=== PATIENT | male | born 1960 | race African-American/Black ===

== ENCOUNTER 2021-11-17 15:00 | Inpatient (IN) | payer OTHER ==
[2021-11-17] MEDS ORDERED: SODIUM CHLORIDE 0.9% 500 ML INFUS.BAG IV ONE ×2 (15:56→17:53)
[2021-11-17 16:37] LABS: BASO % 0.4 % (0-2.0); HEMATOCRIT 32.5 % (35.4-49); HEMOGLOBIN 10.9 GM/dL (11.7-16.9); LYMPH % 10.5 % (8-40); MCH 25.9 pg (25.7-33.7); MCHC 33.4 g/dl (32.0-35.9); MEAN CELL VOLUME 77.5 fl (80-96); MEAN PLT VOLUME 8.1 fl (7.5-11.1); MONO % 8.3 % (3.8-10.2); NEUT % 79.8 % (42.8-82.8); PLATELET COUNT 245 10^3/uL (134-434); RBC 4.19 M/mm3 (4.00-5.60); RDW 18.2 % (11.9-15.9); WHITE BLOOD COUNT 5.4 K/mm3 (4.0-10.0)
[2021-11-17 16:45] LABS: VENOUS BASE EXCESS -0.7 mmol/L (-2-2); VENOUS O2 SATURATION 72.2 % (70-80); VENOUS PCO2 44.2 mmHg (38-52); VENOUS PH 7.366 (7.310-7.410)
[2021-11-17 16:46] LABS: INR 0.97 (0.83-1.09); PROTHROMBIN TIME (PATIENT) 11.2 SEC (9.7-13.0)
[2021-11-17 17:01] LABS: CALCIUM 8.7 mg/dL (8.5-10.1)
[2021-11-17 17:02] LABS: BLOOD UREA NITROGEN 38.5 mg/dL (7-18)
[2021-11-17 17:05] LABS: CREATININE 1.8 mg/dL (0.55-1.3)
[2021-11-17 17:07] LABS: BILIRUBIN,TOTAL 0.3 mg/dL (0.2-1); TOT PROT 6.2 g/dl (6.4-8.2)
[2021-11-17] MEDS ORDERED: LACTATED RINGERS SOLUTION 1,000 ML/1,000 ML INFUS.BAG IV SCH ×2 (20:45→20:46)
[2021-11-17 21:53] LABS: PH,URINE 5.5 (5.0-8.0); URINE APPEARANCE CLEAR; URINE BILIRUBIN NEGATIVE (NEGATIVE); URINE COLOR YELLOW; URINE GLUCOSE (UA) 3+ (NEGATIVE); URINE KETONE NEGATIVE (NEGATIVE); URINE LEUK ESTERASE NEGATIVE (NEGATIVE); URINE NITRITE NEGATIVE (NEGATIVE); URINE PROTEIN NEGATIVE (NEGATIVE); URINE UROBILINOGEN 0.2 mg/dL (0.2-1.0)
[2021-11-17] MEDS: INSULIN SLIDING SCALE (NOVOLOG) 1 VIAL SQ SCH (23:25)
[2021-11-17] MEDS: LACTATED RINGERS SOLUTION 1,000 ML/1,000 ML INFUS.BAG IV SCH (23:25)
[2021-11-17] MEDS: MEMANTINE HCL 10 MG TABLET (FP) PO SCH (23:47)
[2021-11-18] MEDS: INSULIN SLIDING SCALE (NOVOLOG) 1 VIAL SQ SCH ×4 (06:32→21:02)
[2021-11-18 07:50] LABS: ALBUMIN 3.1 g/dl (3.4-5.0); BLOOD UREA NITROGEN 34.9 mg/dL (7-18); CALCIUM 8.5 mg/dL (8.5-10.1); MAGNESIUM 1.9 mg/dL (1.8-2.4)
[2021-11-18 07:53] LABS: CREATININE 1.5 mg/dL (0.55-1.3); PHOSPHOROUS 3.6 mg/dL (2.5-4.9)
[2021-11-18 07:54] LABS: TOT PROT 5.9 g/dl (6.4-8.2)
[2021-11-18] MEDS: MEMANTINE HCL 10 MG TABLET (FP) PO SCH ×2 (09:23→21:02)
[2021-11-18] MEDS: LACTATED RINGERS SOLUTION 1,000 ML/1,000 ML INFUS.BAG IV SCH (21:01)
[2021-11-19] MEDS: INSULIN SLIDING SCALE (NOVOLOG) 1 VIAL SQ SCH ×4 (06:14→21:57)
[2021-11-19 07:35] LABS: HEMATOCRIT 31.9 % (35.4-49); HEMOGLOBIN 10.5 GM/dL (11.7-16.9); MCH 25.7 pg (25.7-33.7); MEAN PLT VOLUME 7.9 fl (7.5-11.1); PLATELET COUNT 254 10^3/uL (134-434); RBC 4.09 M/mm3 (4.00-5.60); RDW 17.9 % (11.9-15.9); WHITE BLOOD COUNT 5.3 K/mm3 (4.0-10.0)
[2021-11-19 07:37] LABS: CALCIUM 8.4 mg/dL (8.5-10.1)
[2021-11-19 07:38] LABS: ALBUMIN 2.8 g/dl (3.4-5.0); BLOOD UREA NITROGEN 26.4 mg/dL (7-18)
[2021-11-19 07:40] LABS: CREATININE 1.4 mg/dL (0.55-1.3)
[2021-11-19 07:42] LABS: BILIRUBIN,TOTAL 0.6 mg/dL (0.2-1); TOT PROT 5.7 g/dl (6.4-8.2)
[2021-11-19] MEDS: MEMANTINE HCL 10 MG TABLET (FP) PO SCH ×2 (11:07→22:00)
[2021-11-19] MEDS: LACTATED RINGERS SOLUTION 1,000 ML/1,000 ML INFUS.BAG IV SCH ×2 (11:08→16:30)
[2021-11-20] MEDS: LACTATED RINGERS SOLUTION 1,000 ML/1,000 ML INFUS.BAG IV SCH ×3 (02:38→12:19)
[2021-11-20] MEDS: INSULIN SLIDING SCALE (NOVOLOG) 1 VIAL SQ SCH ×4 (06:38→21:05)
[2021-11-20 07:52] LABS: HEMATOCRIT 32.8 % (35.4-49); HEMOGLOBIN 10.9 GM/dL (11.7-16.9); MCH 25.7 pg (25.7-33.7); MCHC 33.2 g/dl (32.0-35.9); MEAN CELL VOLUME 77.4 fl (80-96); MEAN PLT VOLUME 7.6 fl (7.5-11.1); PLATELET COUNT 254 10^3/uL (134-434); RBC 4.23 M/mm3 (4.00-5.60); RDW 18.4 % (11.9-15.9); WHITE BLOOD COUNT 5.4 K/mm3 (4.0-10.0)
[2021-11-20 08:47] LABS: ALBUMIN 3.1 g/dl (3.4-5.0)
[2021-11-20 08:49] LABS: CREATININE 1.5 mg/dL (0.55-1.3)
[2021-11-20 08:51] LABS: BILIRUBIN,TOTAL 0.6 mg/dL (0.2-1)
[2021-11-20 08:52] LABS: TOT PROT 5.9 g/dl (6.4-8.2)
[2021-11-20] MEDS: MEMANTINE HCL 10 MG TABLET (FP) PO SCH ×2 (10:19→21:06)
[2021-11-20 14:43] VITALS: BMI 23.7
[2021-11-21] MEDS: MEMANTINE HCL 10 MG TABLET (FP) PO SCH ×2 (09:33→21:17)
[2021-11-21] MEDS: LACTATED RINGERS SOLUTION 1,000 ML/1,000 ML INFUS.BAG IV SCH ×2 (09:55→18:02)
[2021-11-21] MEDS: INSULIN SLIDING SCALE (NOVOLOG) 1 VIAL SQ SCH ×4 (09:55→21:23)
[2021-11-21] MEDS ORDERED: LIDOCAINE 5% TOPICAL PATCH TP PRN (09:56)
[2021-11-21 10:36] LABS: BASO % 0.8 % (0-2.0); EOS % 1.9 % (0-4.5); HEMATOCRIT 31.5 % (35.4-49); HEMOGLOBIN 10.5 GM/dL (11.7-16.9); LYMPH % 11.8 % (8-40); MCH 25.8 pg (25.7-33.7); MCHC 33.3 g/dl (32.0-35.9); MEAN CELL VOLUME 77.5 fl (80-96); MEAN PLT VOLUME 7.8 fl (7.5-11.1); MONO % 7.6 % (3.8-10.2); NEUT % 77.9 % (42.8-82.8); PLATELET COUNT 278 10^3/uL (134-434); RBC 4.06 M/mm3 (4.00-5.60)
[2021-11-21 11:00] LABS: CALCIUM 8.4 mg/dL (8.5-10.1)
[2021-11-21 11:04] LABS: CREATININE 1.5 mg/dL (0.55-1.3)
[2021-11-21] MEDS: ACETAMINOPHEN 325 MG TABLET (FP) PO PRN ×2 (11:13→18:14)
[2021-11-21] MEDS: oxyCODONE HCL 5 MG TABLET PO PRN (21:18)
[2021-11-21] MEDS: LIDOCAINE PATCH REMOVAL MC SCH (21:20)
[2021-11-22] MEDS: INSULIN SLIDING SCALE (NOVOLOG) 1 VIAL SQ SCH ×4 (06:00→21:26)
[2021-11-22 07:45] LABS: BASO % 0.7 % (0-2.0); EOS % 2.9 % (0-4.5); HEMATOCRIT 33.2 % (35.4-49); HEMOGLOBIN 10.9 GM/dL (11.7-16.9); LYMPH % 14.6 % (8-40); MCH 25.7 pg (25.7-33.7); MCHC 32.7 g/dl (32.0-35.9); MEAN CELL VOLUME 78.4 fl (80-96); MEAN PLT VOLUME 8.2 fl (7.5-11.1); MONO % 9.5 % (3.8-10.2); NEUT % 72.3 % (42.8-82.8); PLATELET COUNT 265 10^3/uL (134-434); RBC 4.23 M/mm3 (4.00-5.60); RDW 18.8 % (11.9-15.9); WHITE BLOOD COUNT 5.5 K/mm3 (4.0-10.0)
[2021-11-22 07:51] LABS: BLOOD UREA NITROGEN 18.3 mg/dL (7-18); CALCIUM 8.6 mg/dL (8.5-10.1)
[2021-11-22 07:55] LABS: CREATININE 1.4 mg/dL (0.55-1.3)
[2021-11-22] MEDS: MEMANTINE HCL 10 MG TABLET (FP) PO SCH ×2 (09:11→21:23)
[2021-11-22] MEDS: LACTATED RINGERS SOLUTION 1,000 ML/1,000 ML INFUS.BAG IV SCH (17:36)
[2021-11-22] MEDS: LIDOCAINE PATCH REMOVAL MC SCH (21:26)
[2021-11-23] MEDS: INSULIN SLIDING SCALE (NOVOLOG) 1 VIAL SQ SCH ×3 (06:15→17:00)
[2021-11-23] MEDS: MEMANTINE HCL 10 MG TABLET (FP) PO SCH (09:39)
[2021-11-23 14:00] LABS: BASO % 0.7 % (0-2.0); EOS % 2.2 % (0-4.5); HEMATOCRIT 31.6 % (35.4-49); HEMOGLOBIN 10.3 GM/dL (11.7-16.9); LYMPH % 12.2 % (8-40); MCH 25.8 pg (25.7-33.7); MCHC 32.7 g/dl (32.0-35.9); MEAN PLT VOLUME 7.6 fl (7.5-11.1); NEUT % 76.9 % (42.8-82.8); PLATELET COUNT 263 10^3/uL (134-434); RDW 18.9 % (11.9-15.9); WHITE BLOOD COUNT 5.8 K/mm3 (4.0-10.0)
[2021-11-23 14:09] VITALS: BP 129/72; PULSE 86; TEMP 97.5
[2021-11-23 14:19] LABS: ALBUMIN 2.7 g/dl (3.4-5.0); BLOOD UREA NITROGEN 19.2 mg/dL (7-18); CALCIUM 8.3 mg/dL (8.5-10.1)
[2021-11-23 14:22] LABS: CREATININE 1.4 mg/dL (0.55-1.3)
[2021-11-23 14:24] LABS: BILIRUBIN,TOTAL 0.4 mg/dL (0.2-1); TOT PROT 5.6 g/dl (6.4-8.2)
[2021-11-23] MEDS: LACTATED RINGERS SOLUTION 1,000 ML/1,000 ML INFUS.BAG IV SCH (14:57)
[2021-11-23] MEDS: oxyCODONE HCL 5 MG TABLET PO PRN (15:42)
== END 2021-11-23 18:29 | disposition home or self-care (01) | DRG 204 ==
LOC: JER 15:00 → JERBED 18:08 → J4W 11-18 00:19 → OBSVTOIN 11-20 14:15
PROVIDERS: ADMIT Hospitalist; ATTEND Internal Medicine
DX: I95.1 Orthostatic hypotension (principal); I10 Essential (primary) hypertension; E11.65 Type 2 diabetes mellitus with hyperglycemia; E86.0 Dehydration; C79.31 Secondary malignant neoplasm of brain; Z85.118 Personal history of other malignant neoplasm of bronchus and lung; R42 Dizziness and giddiness
CPT/HCPCS: 36415; 70450-TC; 71045-TC-FY; 71250-TC; 74178-TC; 76775-TC; 80048; 80053; 81003; 82553; 82570; 82803; 82962; 83036; 83605; 83735; 84100; 84133; 84300; 84443; 84484; 85025; 85027; 85610; 85730; 86850; 86900; 86901; 87040; 87086; 93005; 93010; 97116-GP; 97161-GP; 99285-25; C9803-CS; G0378; Q9967; U0003; U0005